=== PATIENT | male | born 1960 | race Caucasian/White ===

== ENCOUNTER 2016-11-29 08:22 | Emergency (ER) | payer OTHER ==
[~2016-11-29] VITALS: Ht 167.6 cm; Wt 86.0 kg
[~2016-11-29 08:22] MED LIST: BACTROBAN NASAL1 G1 BOTH NARES; COUMADIN2.5 MG PO; FERROUS SULFAT325 MG PO; OXYCONTIN10 MG PO; VISTARIL25 MG PO
[2016-11-29 10:46] VITALS: BP 125/90
== END 2016-11-29 10:46 | disposition home or self-care (01) ==
LOC: EME 08:22
DX: M25.462 Effusion, left knee (principal); G89.29 Other chronic pain; M25.562 Pain in left knee; Z96.651 Presence of right artificial knee joint; F17.200 Nicotine dependence, unspecified, uncomplicated
CPT/HCPCS: 73564; 99281; 99284; J3010

== ENCOUNTER 2017-03-05 22:08 | Inpatient (IN) | payer OTHER ==
[~2017-03-05] VITALS: Ht 172.7 cm; Wt 88.3 kg
[~2017-03-05 22:08] MED LIST changes: +LEXAPRO10 MG PO; +MOTRIN800 MG PO; +NAFTIFINE HCL45 GM TP; +OXYCODONE HCL10 MG PO
[2017-03-06 05:57] VITALS: BP 167/97
[2017-03-06 12:17] VITALS: BP 134/90
[2017-03-06 15:59] VITALS: BP 97/60
[2017-03-06 19:36] VITALS: BP 105/64
[2017-03-06 23:42] VITALS: BP 130/85
[2017-03-07 03:20] VITALS: BP 114/73
[2017-03-07 06:13] LABS: HEMATOCRIT 39.1 % (38.0-50.0); MCV 101.8 FL (86-99)
[2017-03-07 06:40] LABS: ANION GAP 8 MEQ/L (2-14); CHLORIDE 103 MEQ/L (99-109); GFR ESTIMATE (CALCULATED) > 59 mL/min/; GLUCOSE 129 mg/dL (70-99); POTASSIUM 4.7 MEQ/L (3.7-5.4); SAMPLE HEMOLYSIS CHECK 0; SAMPLE ICTERIC CHECK 0; SAMPLE LIPEMIA CHECK 0; SODIUM 137 MEQ/L (136-147)
[2017-03-07 06:43] LABS: UREA NITROGEN (BUN) 23 mg/dL (9-23)
[2017-03-07 08:06] VITALS: BP 128/89
[2017-03-07] MEDS ORDERED: ROXICODONE5 MG PO (12:40)
[2017-03-07 15:50] VITALS: BP 132/80
[2017-03-07 23:30] VITALS: BP 126/83
[2017-03-08 06:17] LABS: HEMATOCRIT 32.4 % (38.0-50.0); MCV 101.6 FL (86-99)
[2017-03-08 07:58] VITALS: BP 121/77
[2017-03-08] MEDS ORDERED: ELIQUIS2.5 MG PO (11:47)
== END 2017-03-08 12:51 | DRG 470 ==
LOC: ENRESERV 22:08 → 2SOUTH 03-06 05:14 → ENRESERV 03-06 11:10 → 3EAST 03-06 11:32 → 2SOUTH 03-06 11:33 → 3EAST 03-08 12:51
PROVIDERS: Orthopaedic Surgery
PROC: 0SRD0J9 Replacement of Left Knee Joint with Synthetic Substitute, Cemented, Open Approach (ICD-10-PCS; principal; 2017-03-06)
DX: M17.12 Unilateral primary osteoarthritis, left knee (principal); I10 Essential (primary) hypertension; G89.29 Other chronic pain; M54.2 Cervicalgia; R13.10 Dysphagia, unspecified; R06.02 Shortness of breath; F39 Unspecified mood [affective] disorder; F17.210 Nicotine dependence, cigarettes, uncomplicated; Z96.651 Presence of right artificial knee joint
CPT/HCPCS: 80048; 85014; 85018; 94799; C1713; J0131; J0330; J0690; J1100; J1170; J1885; J2250; J2405; J2710; J3010; J7050; J7120